=== PATIENT | male | born 1945 | race Two or more races ===

== ENCOUNTER 2018-01-21 19:33 | Emergency (ER) | payer OTHER ==
[~2018-01-21] VITALS: Ht 172.7 cm; Wt 81.6 kg
[~2018-01-21 19:33] MED LIST: ASPIR 8181 MG ORAL
[2018-01-21 20:29] VITALS: BP 126/65
[2018-01-21 20:32] LABS: BASOPHILS % (AUTO) 0.7 % (0.0-2.0); EOSINOPHILS % (AUTO) 2.4 % (0.0-3.0); HEMATOCRIT 40.5 % (42.0-52.0); HEMOGLOBIN 13.6 G/DL (14.2-18.0); LYMPHOCYTES % (AUTO) 18.7 % (20.0-45.0); MEAN CORPUSCULAR VOLUME 88 FL (80-99); MONOCYTES % (AUTO) 7.8 % (1.0-10.0); NEUTROPHILS % (AUTO) 70.4 % (45.0-75.0); PLATELET COUNT 223 K/UL (150-450); RED BLOOD COUNT 4.59 M/UL (4.70-6.10); RED CELL DISTRIBUTION WIDTH 11.2 % (11.6-14.8); WHITE BLOOD COUNT 9.2 K/UL (4.8-10.8)
[2018-01-21 20:40] LABS: ANION GAP 4 mmol/L (5-15); BLOOD UREA NITROGEN 7 mg/dL (7-18); CALCIUM 8.5 MG/DL (8.5-10.1); CARBON DIOXIDE 31 MMOL/L (21-32); CHLORIDE 105 MMOL/L (98-107); POTASSIUM 4.1 MMOL/L (3.5-5.1); SODIUM 140 MMOL/L (136-145)
[2018-01-21 20:44] LABS: ALANINE AMINOTRANSFERASE 26 U/L (12-78); ALBUMIN 3.6 G/DL (3.4-5.0); ALKALINE PHOSPHATASE 97 U/L (46-116); ASPARTATE AMINO TRANSFERASE 19 U/L (15-37); BILIRUBIN,TOTAL 0.3 MG/DL (0.2-1.0)
[2018-01-21] MEDS ORDERED: PROMETHAZI6.25 MG/1 ORAL (21:24)
[2018-01-21 21:28] VITALS: BP 127/68
[2018-01-21 21:30] VITALS: BP 127/68
--- NOTE | 2018-01-21 22:32 | Emergency Room Report ---
History of Present Illness General Chief Complaint: Generalized Weakness Source: Patient Present Illness HPI 72-year-old male presents ED for evaluation. Patient brought in by EMS. Per EMS patient had a vomiting episode and felt very weak afterwards. Son at bedside states that patient was feeling sick for the last few days. Son gave him some NyQuil and while they were driving patient became very lethargic so he called 911. Patient shortly after had a vomiting episode. States that in ED patient does look much better. Patient states he feels very weak. Denies any chest pain or shortness of breath. Denies any fevers or chills. States he's had a cough which is dry. No reported fevers. No other aggravating relieving factors. Denies any other associated symptoms Allergies: Coded Allergies: No Known Allergies (Unverified , 01/21/18) Patient History Past Medical History: none Past Surgical History: none Pertinent Family History: none Social History: Denies: smoking, alcohol use, drug use Immunizations: UTD Reviewed Nursing Documentation: PMH: Agreed; PSxH: Agreed Nursing Documentation-PMH Past Medical History: No Stated History Review of Systems All Other Systems: negative except mentioned in HPI Physical Exam Vital Signs Date Time Temp Pulse Resp B/P (MAP) Pulse Ox O2 Delivery O2 Flow Rate FiO2 01/21/18 19:30 96.6 65 16 125/81 100 Room Air 96.6 Sp02 EP Interpretation: reviewed, normal General Appearance: no apparent distress, alert, GCS 15, non-toxic Head: normocephalic, atraumatic Eyes: bilateral eye normal inspection, bilateral eye PERRL ENT: hearing grossly normal, normal pharynx, no angioedema, normal voice Neck: full range of motion, supple/symm/no masses Respiratory: chest non-tender, lungs clear, normal breath sounds, speaking full sentences Cardiovascular #1: regular rate, rhythm, no edema Cardiovascular #2: 2+ carotid (R), 2+ carotid (L), 2+ radial (R), 2+ radial (L) , 2+ dorsalis pedis (R), 2+ dorsalis pedis (L) Gastrointestinal: normal bowel sounds, non tender, soft, non-distended, no guarding, no rebound Rectal: deferred Genitourinary: normal inspection, no CVA tenderness Musculoskeletal: back normal, gait/station normal, normal range of motion, non- tender Neurologic: alert, oriented x3, responsive, motor strength/tone normal, sensory intact, speech normal Psychiatric: judgement/insight normal, memory normal, mood/affect normal, no suicidal/homicidal ideation Reflexes: 3+ bicep (R), 3+ bicep (L), 3+ tricep (R), 3+ tricep (L), 3+ knee (R) , 3+ knee (L) Skin: normal color, no rash, warm/dry, well hydrated Lymphatic: no adenopathy Medical Decision Making Diagnostic Impression: Primary Impression: Episode of generalized weakness ER Course Hospital Course 72-year-old male presents to ED complaining of dizziness, weakness Differential diagnoses include: arrythmia, dehydration, intracranial bleed, seizure Clinical course Patient placed on stretcher. on air sampling and monitoring. After initial history and physical I ordered labs, EKG, chest Xray, IVFs, CT Brain labs reviewed- no leukocytosis, Hb/Hct stable, electrolytes ok, troponins negative CT Brain - unremarkable Chest x-ray- no acute process EKG -normal sinus rhythm no acute ischemic changes interpreted by me Discussed findings with patient, son. I believe his presentation likely due to taking NyQuil, feeling weak due to some viral illness. Given negative workup and improvement in patient's symptoms I believe he can be safely discharged pending close outpatient follow-up. Patient and family agree I. I feel this is a highly complex case requiring extensive working including EKG/Rhythm strip, Xray/CT/US, Blood/urine lab work, repeat exams while in ED, and administration of strong opiates/narcotics for pain control, admission to hospital or close patient follow up. Diagnosis - episode of generalized weakness Stable and discharged to home with Rx Promethazine. Followup with PMD. Return to ED if symptoms recur or worsen Labs Test 01/21/18 19:50 01/21/18 20:30 White Blood Count 9.2 K/UL (4.8-10.8) Red Blood Count 4.59 M/UL (4.70-6.10) Hemoglobin 13.6 G/DL (14.2-18.0) Hematocrit 40.5 % (42.0-52.0) Mean Corpuscular Volume 88 FL (80-99) Mean Corpuscular Hemoglobin 29.7 PG (27.0-31.0) Mean Corpuscular Hemoglobin Concent 33.7 G/DL (32.0-36.0) Red Cell Distribution Width 11.2 % (11.6-14.8) Platelet Count 223 K/UL (150-450) Mean Platelet Volume 7.3 FL (6.5-10.1) Neutrophils (%) (Auto) 70.4 % (45.0-75.0) Lymphocytes (%) (Auto) 18.7 % (20.0-45.0) Monocytes (%) (Auto) 7.8 % (1.0-10.0) Eosinophils (%) (Auto) 2.4 % (0.0-3.0) Basophils (%) (Auto) 0.7 % (0.0-2.0) Sodium Level 140 MMOL/L (136-145) Potassium Level 4.1 MMOL/L (3.5-5.1) Chloride Level 105 MMOL/L (98-107) Carbon Dioxide Level 31 MMOL/L (21-32) Anion Gap 4 mmol/L (5-15) Blood Urea Nitrogen 7 mg/dL (7-18) Creatinine 1.0 MG/DL (0.55-1.30) Estimat Glomerular Filtration Rate > 60 mL/min (>60) Glucose Level 162 MG/DL (74-106) Calcium Level 8.5 MG/DL (8.5-10.1) Total Bilirubin 0.3 MG/DL (0.2-1.0) Aspartate Amino Transf (AST/SGOT) 19 U/L (15-37) Alanine Aminotransferase (ALT/SGPT) 26 U/L (12-78) Alkaline Phosphatase 97 U/L (46-116) Troponin I 0.000 ng/mL (0.000-0.056) Total Protein 7.1 G/DL (6.4-8.2) Albumin 3.6 G/DL (3.4-5.0) Globulin 3.5 g/dL Albumin/Globulin Ratio 1.0 (1.0-2.7) Salicylates Level 0.6 ug/mL (2.8-20) Acetaminophen Level < 2 MCG/ML (10-30) Serum Alcohol < 3 mg/dL Urine Opiates Screen Negative (NEGATIVE) Urine Barbiturates Screen Negative (NEGATIVE) Phencyclidine (PCP) Screen Negative (NEGATIVE) Urine Amphetamines Screen Negative (NEGATIVE) Urine Benzodiazepines Screen Negative (NEGATIVE) Urine Cocaine Screen Negative (NEGATIVE) Urine Marijuana (THC) Screen Negative (NEGATIVE) EKG Diagnostic Results Rate: normal Rhythm: NSR ST Segments: no acute changes ASA given to the pt in ED: No Rhythm Strip Diag. Results EP Interpretation: yes Rhythm: NSR, no PVC's, no ectopy Chest X-Ray Diagnostic Results Chest X-Ray Diagnostic Results : Chest X-Ray Ordered: Yes Indication: Other - dizziness EP Interpretation: Yes Interpretation: no consolidation, no effusion, no pneumothorax, no acute cardiopulmonary disease Impression: No acute disease Electronically Signed by: Electronically signed by Randy Swanson MD CT/MRI/US Diagnostic Results CT/MRI/US Diagnostic Results : Imaging Test Ordered: CT head Impression no acute process Last Vital Signs Date Time Temp Pulse Resp B/P (MAP) Pulse Ox O2 Delivery O2 Flow Rate FiO2 01/21/18 21:28 96.6 21 127/68 100 Room Air 96.6 01/21/18 19:30 65 Disposition: HOME, SELF-CARE Condition: Stable Scripts Promethazine Hcl (PROMETHAZINE HCL*) 6.25 Mg/5 Ml Syrup 5 ML ORAL Q6H, #120 ML 0 Refills Prov: RANDY SWANSON M.D. 01/21/18 Referrals: NOT CHOSEN RAMÓN/,REFERRING (PCP) Patient Instructions: RANDY Hood M.D. Jan 21, 2018 22:32
--- NOTE | 2018-01-22 09:25 | Diagnostic Imaging Report ---
Indication: Shortness of breath Technique: XRAY Chest 1v Comparison: None Findings: The cardiomediastinal silhouette is within normal limits. There is no focal consolidation, pneumothorax or pleural effusion. Osseous structures demonstrate no acute abnormality. Impression: No acute cardiopulmonary disease.
--- NOTE | 2018-01-22 09:33 | Diagnostic Imaging Report ---
Indication: Altered mental status Technique: Continuous helical CT scanning of the head was performed utilizing automated exposure control without intravenous contrast material. Axial and coronal reconstructions were obtained. Comparison: None CT dose: Total DLP 1354 mGycm; CTDI vol 70.4 mGy Findings: There is no acute intracranial hemorrhage, mass effect or cortical edema. The ventricles, cisterns and sulci are prominent consistent with age-related atrophy. Bilateral inferior frontal encephalomalacia is present. The posterior fossa and fourth ventricle are unremarkable. Sellar and suprasellar regions are grossly unremarkable. Visualized mastoid air cells and paranasal sinuses are unremarkable. No focal lesions of the bony calvarium or soft tissues of the scalp are seen. Impression: No evidence of acute intracranial hemorrhage, mass effect or cortical edema. MRI may be obtained for more sensitive evaluation as clinically indicated. Bilateral inferior frontal encephalomalacia suggestive of prior insult. Clinical correlation recommended. The CT scanner at [facility] is accredited by the [employer] and the scans are performed using protocols designed to limit radiation exposure to as low as reasonably achievable to attain images of sufficient resolution adequate for diagnostic evaluation.
--- NOTE | 2018-01-24 19:22 | Cardiology Report ---
APPROVED REPORT EKG Measurement Heart [id number] VT [id number] Normal sinus rhythm with sinus arrhythmia Normal ECG
== END 2018-01-21 21:30 | disposition home or self-care (01) ==
LOC: EDBD 19:33 → EMR 19:50
DX: R53.1 Weakness (principal); R11.10 Vomiting, unspecified; R41.82 Altered mental status, unspecified; R06.02 Shortness of breath
CPT/HCPCS: 36415; 70450; 71045; 80053; 80307; 84484; 85025; 86710; 93005; 96374; 99284; G0480; 80329